=== PATIENT | male | born 1970 | race Caucasian/White ===

== ENCOUNTER 2022-03-05 19:38 | Emergency (ER) | payer BC ==
[2022-03-05 20:07] VITALS: BP 113/95; PULSE 63
== END 2022-03-05 21:17 | disposition home or self-care (01) ==
LOC: LL.ED 19:38 → SUPCPDRO 19:38 → LL.ED 21:17
DX: S50.11XA Contusion of right forearm, initial encounter (principal); S60.211A Contusion of right wrist, initial encounter; E78.00 Pure hypercholesterolemia, unspecified; I10 Essential (primary) hypertension; F17.210 Nicotine dependence, cigarettes, uncomplicated; Z95.5 Presence of coronary angioplasty implant and graft; Z79.82 Long term (current) use of aspirin; Z79.02 Long term (current) use of antithrombotics/antiplatelets; Z79.899 Other long term (current) drug therapy
CPT/HCPCS: 99283; 99284